=== PATIENT | female | born 1945 | race Caucasian/White ===

== ENCOUNTER 2017-08-12 19:03 | Emergency (ER) | payer MEDICARE ==
[~2017-08-12 19:03] MED LIST: MONOPRIL TAB 1010 MG PO; NEURONTIN 300300 MG PO; TRAZODONE HCL100 MG PO; ZANTAC300 MG PO
[2017-08-12 21:21] LABS: HEMOGLOBIN 14.1 gm/dl (12.3-15.3); RED BLOOD COUNT 4.85 M/UL (4.00-5.10); WHITE BLOOD COUNT 12.6 K/UL (4.5-11.0)
== END 2017-08-13 03:10 | disposition home or self-care (01) ==
LOC: ER1 19:03
PROVIDERS: Specialist/Technologist Athletic Trainer
DX: J06.9 Acute upper respiratory infection, unspecified (principal); I10 Essential (primary) hypertension; R79.89 Other specified abnormal findings of blood chemistry; M62.82 Rhabdomyolysis; K21.9 Gastro-esophageal reflux disease without esophagitis; F17.200 Nicotine dependence, unspecified, uncomplicated; Z88.0 Allergy status to penicillin; Z88.5 Allergy status to narcotic agent; Z79.899 Other long term (current) drug therapy
CPT/HCPCS: 70450; 71250; 80053; 82550; 82553; 83874; 84484; 85025; 93005; 94640; 94664; 96361; 96374; 99284; J2930; J7030

== ENCOUNTER → 2020-11-20 | Outpatient (CLI) | payer OTHER ==
[~2020-11-20] MED LIST changes: +AEROCHAMBER1 EA XX; +AUGMENTIN 875-1 EACH PO; +BACTRIM DS TAB1 EACH PO; +BENTYL 10MG CAP10 MG PO; +BENTYL 20MG TAB20 MG PO; +BENZONATATE100 MG PO; +CEFUROXIME250 MG PO; +CEFUROXIME500 MG PO; +CIPRO500 MG PO; +COMBIVENT RESPIM4 GM INH; +FISH OIL 1,0001 EACH PO; +FLAGYL500 MG PO; +FLEXERIL 10 MG10 MG PO; +FLORANEX GRANU1 EACH PO; +HYDROCHLOROTHIA25 MG PO; +IBUPROFEN600 MG PO; +LEVAQUIN500 MG PO; +LIPITOR TAB 2020 MG PO; +LORTAB 7.5-3251 EACH PO; +METRONIDAZOLE250 MG PO; +MOBIC7.5 MG PO; +NORCO 5-325 TA1 EACH PO; +NORVASC 5 MG TAB5 MG PO; +PERCOCET 5-3251 EACH PO; +PERCOCET 5/325 T1 EA PO; +PHENERGAN 12.12.5 M1 PO; +PHENERGAN 25 MG25 M1 PO; +PREDNISONE 50 M50 MG PO; +SYNTHROID25 MCG PO; +TAMIFLU75 MG PO; +TESSALON PERLE100 MG PO; +TRAMADOL HCL50 MG PO; +TYLENOL 325MG325 MG PO; +TYLENOL 500 MG500 MG PO; +VANCOMYCIN HCL125 MG PO; +VANCOMYCIN HCL250 MG PO; +VENTOLIN HFA 66.7 GM INH; +Voltaren Gel 1 % TOP; +ZANAFLEX4 MG PO; +ZANTAC150 MG PO; -ZANTAC300 MG PO; +ZESTRIL40 MG PO; +ZOFRAN ODT 4 MG4 MG PO; +ZOFRAN ODT 4 MG4 MG SL; +ZOFRAN4 MG PO; +ZOLOFT25 MG PO
== END ==
LOC: RAD 15:24
DX: M25.511 Pain in right shoulder (principal); M54.2 Cervicalgia; M47.812 Spondylosis without myelopathy or radiculopathy, cervical region; M50.322 Other cervical disc degeneration at C5-C6 level
CPT/HCPCS: 72050; 73030

== ENCOUNTER → 2021-01-08 | Outpatient (CLI) | payer OTHER ==
[2021-01-08 15:44] LABS: RED BLOOD COUNT 4.44 M/UL (4.00-5.10); WHITE BLOOD COUNT 9.8 K/UL (4.5-11.0)
== END ==
LOC: LAB 13:54
PROVIDERS: Nurse Practitioner Family
DX: I10 Essential (primary) hypertension (principal); R73.09 Other abnormal glucose; R53.83 Other fatigue; E55.9 Vitamin D deficiency, unspecified; E53.8 Deficiency of other specified B group vitamins
CPT/HCPCS: 36415; 80053; 80061; 81001; 82607; 83036; 84443; 85027

== ENCOUNTER 2021-02-03 18:34 | Emergency (ER) | payer OTHER ==
[~2021-02-03 18:34] MED LIST changes: -HYDROCHLOROTHIA25 MG PO
== END 2021-02-03 19:22 | disposition left against medical advice (07) ==
LOC: ER1 18:34
DX: Z53.21 Procedure and treatment not carried out due to patient leaving prior to being seen by health care provider (principal)

== ENCOUNTER → 2021-02-24 | Outpatient (CLI) | payer OTHER ==
[~2021-02-24] MED LIST changes: +HYDROCHLOROTHIA25 MG PO
== END ==
LOC: KOH-I 13:38
DX: M54.5 Low back pain (principal); M51.36 Other intervertebral disc degeneration, lumbar region; M48.07 Spinal stenosis, lumbosacral region
CPT/HCPCS: 72148

== ENCOUNTER 2021-03-04 16:15 | Emergency (ER) | payer OTHER ==
[~2021-03-04 16:15] MED LIST changes: -HYDROCHLOROTHIA25 MG PO
[2021-03-04 18:03] LABS: HEMOGLOBIN 12.8 gm/dl (12.3-15.3); RED BLOOD COUNT 4.42 M/UL (4.00-5.10); WHITE BLOOD COUNT 8.8 K/UL (4.5-11.0)
[2021-03-04] MEDS ORDERED: HYDROCHLOROTHIA25 MG PO (19:38)
== END 2021-03-04 20:50 | disposition home or self-care (01) ==
LOC: ER1 16:15
PROVIDERS: Family Medicine
DX: I10 Essential (primary) hypertension (principal); R07.9 Chest pain, unspecified; J44.9 Chronic obstructive pulmonary disease, unspecified; F17.200 Nicotine dependence, unspecified, uncomplicated
CPT/HCPCS: 80053; 81001; 83690; 85025; 93005; 96374; 99283; J2270

== ENCOUNTER 2021-03-16 20:48 | Emergency (ER) | payer OTHER ==
[~2021-03-16 20:48] MED LIST changes: +HYDROCHLOROTHIA25 MG PO
[2021-03-16 21:25] LABS: HEMOGLOBIN 12.7 gm/dl (12.3-15.3); RED BLOOD COUNT 4.33 M/UL (4.00-5.10); WHITE BLOOD COUNT 15.9 K/UL (4.5-11.0)
[2021-03-16 22:06] LABS: BUN/CREATININE RATIO 18 (0-10)
== END 2021-03-17 00:33 | disposition home or self-care (01) ==
LOC: ER1 20:48
PROVIDERS: Family Medicine
DX: R55 Syncope and collapse (principal); N18.9 Chronic kidney disease, unspecified; I12.9 Hypertensive chronic kidney disease with stage 1 through stage 4 chronic kidney disease, or unspecified chronic kidney disease; F17.200 Nicotine dependence, unspecified, uncomplicated; Z88.5 Allergy status to narcotic agent; Z90.49 Acquired absence of other specified parts of digestive tract
CPT/HCPCS: 70450; 71045; 73030; 80053; 81001; 82550; 82553; 83874; 84439; 84443; 84484; 85025; 93005; 96374; 99285; J2405

== ENCOUNTER → 2021-07-09 | Outpatient (CLI) | payer OTHER | LOC: EXRD 07-01 13:00 | DX: N18.30 Chronic kidney disease, stage 3 unspecified (principal); M25.641 Stiffness of right hand, not elsewhere classified; M25.642 Stiffness of left hand, not elsewhere classified; N28.1 Cyst of kidney, acquired; M19.042 Primary osteoarthritis, left hand; M19.041 Primary osteoarthritis, right hand | CPT/HCPCS: 73130; 76775 ==

== ENCOUNTER → 2021-09-24 | Outpatient (CLI) | payer OTHER | LOC: KOH-I 14:00 | DX: F17.210 Nicotine dependence, cigarettes, uncomplicated (principal); R91.1 Solitary pulmonary nodule | CPT/HCPCS: 71271 ==

== ENCOUNTER 2021-10-03 14:48 | Emergency (ER) | payer OTHER ==
[2021-10-03 15:37] LABS: HEMOGLOBIN 12.9 gm/dl (12.3-15.3); RED BLOOD COUNT 4.44 M/UL (4.00-5.10); WHITE BLOOD COUNT 8.1 K/UL (4.5-11.0)
[2021-10-03] MEDS ORDERED: ZOFRAN4 MG PO (17:06)
== END 2021-10-03 17:45 | disposition home or self-care (01) ==
LOC: ER1 14:48
PROVIDERS: Physician Assistant
DX: U07.1 COVID-19 (principal); I12.9 Hypertensive chronic kidney disease with stage 1 through stage 4 chronic kidney disease, or unspecified chronic kidney disease; N18.9 Chronic kidney disease, unspecified; Z88.5 Allergy status to narcotic agent
CPT/HCPCS: 0240U; 71045; 80053; 85025; 93005; 96374; 99284; J2405

== ENCOUNTER 2021-10-04 12:20 | Emergency (ER) | payer OTHER ==
[~2021-10-04] VITALS: Ht 160 cm; Wt 64.0 kg
== END 2021-10-04 15:25 | disposition home or self-care (01) ==
LOC: ER1 12:20
DX: U07.1 COVID-19 (principal); Z23 Encounter for immunization; J44.9 Chronic obstructive pulmonary disease, unspecified; I12.9 Hypertensive chronic kidney disease with stage 1 through stage 4 chronic kidney disease, or unspecified chronic kidney disease; N18.9 Chronic kidney disease, unspecified; F17.200 Nicotine dependence, unspecified, uncomplicated; Z90.49 Acquired absence of other specified parts of digestive tract
CPT/HCPCS: 99283; M0243

== ENCOUNTER 2021-12-02 11:34 | Inpatient (IN) | payer OTHER ==
[~2021-12-02] VITALS: Ht 160 cm; Wt 63.5 kg
[~2021-12-02 11:34] MED LIST changes: +NEURONTIN300 MG PO; +ZESTRIL20 MG PO; -ZESTRIL40 MG PO
[2021-12-02 12:09] LABS: RED BLOOD COUNT 5.14 M/UL (4.00-5.10); WHITE BLOOD COUNT 19.4 K/UL (4.5-11.0)
[2021-12-02 12:51] LABS: BUN/CREATININE RATIO 10 (0-10)
[2021-12-02] MEDS ORDERED: ONDANSETRON HCL4 MG PO (16:24)
[2021-12-02] MEDS ORDERED: FAMOTIDINE20 MG PO (16:25)
[2021-12-02] MEDS ORDERED: AMLODIPINE BESY10 MG PO (16:26)
[2021-12-02] MEDS ORDERED: HYDROCODON-ACE1 EAC2 PO (16:27)
[2021-12-02] MEDS ORDERED: NICOTINE PATCH1 EAC5 TD (16:28)
[2021-12-03 05:58] LABS: RED BLOOD COUNT 4.83 M/UL (4.00-5.10)
[2021-12-03 06:05] LABS: WHITE BLOOD COUNT 14.1 K/UL (4.5-11.0)
[2021-12-04 05:59] LABS: HEMOGLOBIN 13.2 gm/dl (12.3-15.3); RED BLOOD COUNT 4.72 M/UL (4.00-5.10); WHITE BLOOD COUNT 11.8 K/UL (4.5-11.0)
[2021-12-05 05:41] LABS: WHITE BLOOD COUNT 10.8 K/UL (4.5-11.0)
[2021-12-05 05:55] LABS: HEMOGLOBIN 10.8 gm/dl (12.3-15.3); RED BLOOD COUNT 3.86 M/UL (4.00-5.10)
--- NOTE | 2021-12-05 15:31 | NUR ---
COVID ISOLATION DISCONTINUED AFTER SPEAKING WITH INFECTION CONTROL AND DR DANIELS
[2021-12-05] MEDS ORDERED: CEFUROXIME500 MG PO (18:03)
--- NOTE | 2021-12-05 19:34 | NUR ---
DISCHARGE COMPLETE: PT IV'S REMOVED, EDUCATION COMPLETED, V/S WNL, PT LEFT THE FLOOR BY WHEELCHAIR IN STABLE CONDITION.
== END 2021-12-05 19:28 | disposition home or self-care (01) | DRG 388 ==
LOC: ER1 11:34 → CDU 14:26 → CCU 14:26 → M/S 12-04 14:07
PROVIDERS: Nurse Practitioner; Physician Assistant; ADMIT Internal Medicine
PROC: 8E0ZXY6 Isolation (ICD-10-PCS; principal; 2021-12-02)
DX: K56.609 Unspecified intestinal obstruction, unspecified as to partial versus complete obstruction (principal); U07.1 COVID-19; N17.9 Acute kidney failure, unspecified; N30.00 Acute cystitis without hematuria; E87.1 Hypo-osmolality and hyponatremia; I12.9 Hypertensive chronic kidney disease with stage 1 through stage 4 chronic kidney disease, or unspecified chronic kidney disease; J44.9 Chronic obstructive pulmonary disease, unspecified; G47.33 Obstructive sleep apnea (adult) (pediatric); N18.30 Chronic kidney disease, stage 3 unspecified; F17.210 Nicotine dependence, cigarettes, uncomplicated; M54.9 Dorsalgia, unspecified; G89.29 Other chronic pain; E86.0 Dehydration; B96.20 Unspecified Escherichia coli [E. coli] as the cause of diseases classified elsewhere; E78.5 Hyperlipidemia, unspecified; K57.90 Diverticulosis of intestine, part unspecified, without perforation or abscess without bleeding; E03.9 Hypothyroidism, unspecified; Z90.49 Acquired absence of other specified parts of digestive tract; Z90.89 Acquired absence of other organs; Z88.5 Allergy status to narcotic agent; Z71.6 Tobacco abuse counseling; Z80.0 Family history of malignant neoplasm of digestive organs; Z79.899 Other long term (current) drug therapy
CPT/HCPCS: 0240U; 36415; 71045; 80048; 80053; 81001; 82550; 82553; 82570; 83735; 83874; 84133; 84156; 84300; 84484; 85025; 87040; 87077; 87086; 87186; 89050; 94640; 94664; 94760; 96374; 96375; 96376; 99285; J0696; J1100; J1650; J2270; J2405; J2550; J7030; P9047

== ENCOUNTER 2022-02-18 16:14 | Emergency (ER) | payer MEDICARE ==
[~2022-02-18 16:14] MED LIST changes: +AMLODIPINE BESY10 MG PO; +FAMOTIDINE20 MG PO; +HYDROCODON-ACE1 EAC2 PO; +NICOTINE PATCH1 EAC5 TD; +ONDANSETRON HCL4 MG PO
[2022-02-18 17:41] LABS: HEMOGLOBIN 13.6 gm/dl (12.3-15.3); RED BLOOD COUNT 4.64 M/UL (4.00-5.10); WHITE BLOOD COUNT 13.1 K/UL (4.5-11.0)
[2022-02-18] MEDS ORDERED: ZOFRAN 4 MG TAB4 MG PO (19:56)
[2022-02-18] MEDS ORDERED: CEFUROXIME500 MG PO (19:56)
== END 2022-02-18 20:10 | disposition home or self-care (01) ==
LOC: ER1 16:14
PROVIDERS: Preventive Medicine Occupational Medicine
DX: N39.0 Urinary tract infection, site not specified (principal); E86.0 Dehydration; J44.9 Chronic obstructive pulmonary disease, unspecified
CPT/HCPCS: 80053; 81001; 83690; 85025; 85652; 86140; 87086; 96374; 96375; 99284; J0696; J1170; J2405; J7030

== ENCOUNTER 2022-05-28 18:04 | Emergency (ER) | payer MEDICARE ==
[~2022-05-28 18:04] MED LIST changes: +ZOFRAN 4 MG TAB4 MG PO
[2022-05-28 18:46] LABS: HEMOGLOBIN 13.7 gm/dl (12.3-15.3); RED BLOOD COUNT 4.7 M/UL (4.00-5.10); WHITE BLOOD COUNT 11.8 K/UL (4.5-11.0)
== END 2022-05-29 01:25 | disposition home or self-care (01) ==
LOC: ER1 18:04
PROVIDERS: Emergency Medicine
DX: R10.9 Unspecified abdominal pain (principal); R11.2 Nausea with vomiting, unspecified; R19.7 Diarrhea, unspecified; I10 Essential (primary) hypertension; F17.210 Nicotine dependence, cigarettes, uncomplicated; Z20.822 Contact with and (suspected) exposure to COVID-19
CPT/HCPCS: 0240U; 80053; 81001; 83690; 85025; 87086; 93005; 96361; 96374; 96375; 99284; J1170; J2270; J2405

== ENCOUNTER 2022-06-23 21:56 | Emergency (ER) | payer MEDICARE ==
[2022-06-23 23:47] LABS: HEMOGLOBIN 13.5 gm/dl (12.3-15.3); RED BLOOD COUNT 4.68 M/UL (4.00-5.10); WHITE BLOOD COUNT 12.3 K/UL (4.5-11.0)
[2022-06-24 00:15] LABS: BUN/CREATININE RATIO 18 (0-10)
== END 2022-06-24 03:07 | disposition home or self-care (01) ==
LOC: ER1 21:56
PROVIDERS: Student in an Organized Health Care Education/Training Program
DX: M54.9 Dorsalgia, unspecified (principal); E86.0 Dehydration; J44.9 Chronic obstructive pulmonary disease, unspecified; I12.9 Hypertensive chronic kidney disease with stage 1 through stage 4 chronic kidney disease, or unspecified chronic kidney disease; N18.30 Chronic kidney disease, stage 3 unspecified; F17.200 Nicotine dependence, unspecified, uncomplicated; Z88.5 Allergy status to narcotic agent
CPT/HCPCS: 71045; 80053; 81001; 82550; 82553; 83690; 84484; 85025; 99284

== ENCOUNTER 2022-06-25 15:29 | Emergency (ER) | payer MEDICARE ==
[2022-06-25 18:22] LABS: HEMOGLOBIN 13.9 gm/dl (12.3-15.3); RED BLOOD COUNT 4.84 M/UL (4.00-5.10); WHITE BLOOD COUNT 11.4 K/UL (4.5-11.0)
== END 2022-06-25 21:15 | disposition home or self-care (01) ==
LOC: ER1 15:29
PROVIDERS: Emergency Medicine
DX: E86.0 Dehydration (principal); I12.9 Hypertensive chronic kidney disease with stage 1 through stage 4 chronic kidney disease, or unspecified chronic kidney disease; N18.9 Chronic kidney disease, unspecified; J44.9 Chronic obstructive pulmonary disease, unspecified; F17.210 Nicotine dependence, cigarettes, uncomplicated
CPT/HCPCS: 80053; 84484; 85025; 96361; 96374; 99284; J2405

== ENCOUNTER 2022-07-10 17:48 | Inpatient (IN) | payer MEDICARE ==
[~2022-07-10] VITALS: Ht 160 cm; Wt 64.4 kg
[~2022-07-10 17:48] MED LIST changes: -HYDROCODON-ACE1 EAC2 PO; +HYDROCODON-ACE1 EAC6 PO; -NEURONTIN300 MG PO; +NEURONTIN600 MG PO; +TIZANIDINE HCL2 MG PO; -ZANAFLEX4 MG PO
[2022-07-10 19:16] LABS: HEMOGLOBIN 15.1 gm/dl (12.3-15.3); RED BLOOD COUNT 5.21 M/UL (4.00-5.10); WHITE BLOOD COUNT 14.7 K/UL (4.5-11.0)
[2022-07-11 04:04] LABS: HEMOGLOBIN 13.1 gm/dl (12.3-15.3); RED BLOOD COUNT 4.53 M/UL (4.00-5.10); WHITE BLOOD COUNT 10.8 K/UL (4.5-11.0)
[2022-07-11] MEDS ORDERED: OMEPRAZOLE20 MG PO (09:56)
[2022-07-11] MEDS ORDERED: LIPITOR TAB 1010 MG PO (09:56)
--- NOTE | 2022-07-11 13:04 | NUR ---
PT REQUESTING PAIN MEDS. HYDROCODONE 10 GIVEN PER NEW ORDERS. PT STATES HER PAIN MEDS AT HOME ARE 7.5 AND IS "STRONGER" THAN WHAT SHE IS GETTING HERE. SHE STATES THAT AT HOME SHE TAKES HER PAIN MEDS Q3H PER HER PAIN CLINIC. INFORMED HER THAT SHE WOULD BE RECEIVING HYDROCODONE 10 Q8HRS PRN. PT REFUSING TO STAY. STATES SHE WILL HAVE BETTER PAIN CONTROL AT HOME AND WILL BE ABLE TO EAT AT HOME WELL SINCE SHE IS NPO HERE. NOTIFIED. MD STATES HE WILL NOT DC HER AND IF SHE INSISTS ON GOING THAT SHE WILL HAVE TO SIGN AMA. ENCOURAGED PT TO STAY AT LEAST OVERNIGHT, BUT SHE CONTINUES TO INSIST ON LEAVING. AMA PAPERS GIVEN AND SIGNED BY PATIENT. PT AMBULATED TO PRIVATE CAR.
== END 2022-07-11 12:41 | disposition left against medical advice (07) | DRG 683 ==
LOC: ER1 17:48 → M/S 21:11 → CDU 21:11 → M/S 07-11 00:12
PROVIDERS: Internal Medicine; Nurse Practitioner; ADMIT Student in an Organized Health Care Education/Training Program
DX: N17.9 Acute kidney failure, unspecified (principal); F11.20 Opioid dependence, uncomplicated; K56.609 Unspecified intestinal obstruction, unspecified as to partial versus complete obstruction; I12.9 Hypertensive chronic kidney disease with stage 1 through stage 4 chronic kidney disease, or unspecified chronic kidney disease; N18.30 Chronic kidney disease, stage 3 unspecified; Z53.21 Procedure and treatment not carried out due to patient leaving prior to being seen by health care provider; E03.9 Hypothyroidism, unspecified; J44.9 Chronic obstructive pulmonary disease, unspecified; E86.0 Dehydration; G47.33 Obstructive sleep apnea (adult) (pediatric); F17.210 Nicotine dependence, cigarettes, uncomplicated; G89.29 Other chronic pain; M54.9 Dorsalgia, unspecified; I10 Essential (primary) hypertension; E78.00 Pure hypercholesterolemia, unspecified; Z87.19 Personal history of other diseases of the digestive system; Z90.49 Acquired absence of other specified parts of digestive tract; Z88.8 Allergy status to other drugs, medicaments and biological substances; Z80.9 Family history of malignant neoplasm, unspecified
CPT/HCPCS: 36415; 71045; 80048; 80053; 81001; 82550; 82553; 83605; 83690; 83735; 84484; 85025; 87086; 93005; 96361; 96374; 96375; 99285; J2270; J2405

== ENCOUNTER 2022-07-26 14:19 | Emergency (ER) | payer MEDICARE ==
[~2022-07-26 14:19] MED LIST changes: +LIPITOR TAB 1010 MG PO; +OMEPRAZOLE20 MG PO
[2022-07-26 14:54] LABS: HEMOGLOBIN 13.6 gm/dl (12.3-15.3); RED BLOOD COUNT 4.64 M/UL (4.00-5.10)
[2022-07-26] MEDS ORDERED: ZOFRAN ODT 4 MG4 MG SL (20:36)
== END 2022-07-26 21:08 | disposition home or self-care (01) ==
LOC: ER1 14:19
PROVIDERS: Student in an Organized Health Care Education/Training Program
DX: R10.9 Unspecified abdominal pain (principal); R10.813 Right lower quadrant abdominal tenderness; R10.814 Left lower quadrant abdominal tenderness; I11.9 Hypertensive heart disease without heart failure; F17.210 Nicotine dependence, cigarettes, uncomplicated; J44.9 Chronic obstructive pulmonary disease, unspecified; Z90.49 Acquired absence of other specified parts of digestive tract
CPT/HCPCS: 80053; 81001; 83605; 83690; 85025; 93005; 96361; 96374; 96375; 99284; J2270; J2405

== ENCOUNTER → 2022-07-29 | Outpatient (CLI) | payer MEDICARE ==
[2022-07-29 14:39] LABS: HEMOGLOBIN 13.5 gm/dl (12.3-15.3); RED BLOOD COUNT 4.64 M/UL (4.00-5.10); WHITE BLOOD COUNT 12.7 K/UL (4.5-11.0)
== END ==
LOC: LAB 14:05
PROVIDERS: Internal Medicine Nephrology
DX: N18.32 Chronic kidney disease, stage 3b (principal)
CPT/HCPCS: 36415; 80053; 82570; 83970; 84100; 84156; 85027

== ENCOUNTER → 2022-07-29 | Outpatient (CLI) | payer MEDICARE | LOC: EXRD 13:00 → KOH-I 13:30 | DX: N28.1 Cyst of kidney, acquired (principal); N28.9 Disorder of kidney and ureter, unspecified | CPT/HCPCS: 76775 ==